=== PATIENT | male | born 1965 | race Caucasian/White ===

== ENCOUNTER 2024-05-12 00:27 | Emergency (ER) | payer OTHER, SELFPAY ==
[2024-05-12 00:33] VITALS: BP 165/78
--- NOTE | 2024-05-12 00:49 | ED.GENMED ---
History of Present Illness
<ANDREI Gardner - Last Filed: 05/12/24 02:32>
General
Chief Complaint: Abdominal Pain
Source: patient
Exam Limitations: none
Time Seen by Provider: 05/12/24 00:39
History of Present Illness
History of Present Illness:
This is a 58 year old male that comes in with c/o abd pain. Stats that he started about 7:30pm tonight with abd pain that is a burning. State that the pain has continued to get worse and is sharp. States that he feels bloated. States that he had
chills at home, nausea. Denies any fever, chest pain, SOB, vomiting, diarrhea, headache, dizziness, urinary burning.
Past History
<ANDREI Gardner - Last Filed: 05/12/24 02:32>
Past History
ED Past Medical History: Asthma, Cancer (GIST(Gastrointestinal stromal tumor)) and Other (GI bleeding, Pelvic mass); Negative HTN, Hypercholesterolemia or NIDDM
ED Past Surgical History: Bowel resection
Social History
Tobacco: Non-smoker
Alcohol: Occasional
Drug: None
Personal:
Living: with family
Employment: Employed
Family History
Family History: Other (Noncontributory)
Review of Systems
<ANDREI Gardner - Last Filed: 05/12/24 02:32>
Review of Systems
All Other Systems: ROS reviewed and negative except as documented in HPI and ROS
Constitutional: Reports chills; Denies fever
EENT: Reports no symptoms
Respiratory: Reports no symptoms; Denies cough or trouble breathing
Cardiac: Reports no symptoms; Denies chest pain
ABD/GI: Reports abdominal pain and nausea; Denies vomiting or diarrhea
: Reports no symptoms; Denies dysuria, frequency or urgency
Musculoskeletal: Reports no symptoms
Skin: Reports no symptoms
Neurological: Reports no symptoms; Denies dizzy or headache
Psychiatric: Reports no symptoms
Phy Exam
<ANDREI Gardner - Last Filed: 05/12/24 02:32>
General Physical Exam
General Presentation: mild distress
General age: appears stated age
General Skin: warm and dry
General Habitus: normal
General Mental: alert
General Hydration: appears well hydrated
ENT Exam
ENT Exam: TM's normal, pharynx normal and neck supple
Eye Exam
Eye Exam: EOMI
Cardiovascular Exam
Cardiovascular Exam: regular rate/rhythm, no edema, no murmur and normal peripheral pulses
Pulmonary Exam
Pulmonary Exam: lungs clear, no respiratory distress, no rales, chest non tender, no crackles, no rhonchi, no wheezing and no cough
Gastrointestinal Exam
Gastrointestinal Exam: normal bowel sounds, no organomegaly, no pulsatile mass and other (Slight distention and slightly firm, Negative for guarding or rebound tenderness)
Musculoskeletal Exam
Musculoskeletal Exam: full ROM and no edema
Skin Exam
Skin Exam: normal color, warm/dry, no rash and no petechia
Psychiatric Exam
Psychiatric Exam: normal mood/affect
Course
<ANDREI Gardner - Last Filed: 05/12/24 02:32>
Orders/Labs/Results
Orders:
Orders
05/12/24 00:48
CT Abd/pel W Iv And Oral Contr Urgent
Comment:
Reason For Exam: ABD PAIN
0.9% Sodium Chloride 1000 ml [Nss] 1,000 ml IV BOLUS
Iohexol [Omnipaque] See Protocol PO NOW STA
Pantoprazole [Protonix IV] 40 mg IV NOW STA
05/12/24 00:49
Ketorolac [Toradol] 30 mg IV NOW STA
Ondansetron Injectable [Zofran] 4 mg IV NOW STA
05/12/24 00:59
CMP [Comprehensive Metabolic Panel] Urgent
Complete Blood Count/With Diff Urgent
Lactate Level [Lactic Acid] Urgent
Lipase Urgent
05/12/24 03:49
Magnesium Citrate [Citroma] 300 ml PO ONCE ONE
Abnormal Lab Results
05/12/24
00:59
RBC 4.03 L 10^6/uL
(4.70-6.10)
Hct 36.7 L %
(39.0-52.0)
MCH 32.5 H pg
(27.0-31.0)
MPV 10.5 H fL
(7.4-10.4)
Absolute Lymphs (auto) 0.7 L 10^3/uL
(1.2-3.4)
Neutrophils % 82.2 H %
(42.2-75.2)
Lymphocytes % 8.7 L %
(20.5-51.1)
Carbon Dioxide 32 H mmol/L
(22-30)
Glucose 118 H mg/dl
(70-99)
05/12/24 00:59
05/12/24 00:59
carbon dioxide slightly elevated, Hyperglycemia. Lactic acid normal at 1.0, Lipase normal at 95
Vital Signs
Initial and Last Documented VS:
Initial Vital Signs
Temp Pulse Resp BP Pulse Ox
98.8 F 75 20 165/78 100
05/12/24 00:33 05/12/24 00:33 05/12/24 00:33 05/12/24 00:33 05/12/24 00:33
Last Documented Vital Signs
Temp Pulse Resp BP Pulse Ox
98.8 F 75 20 134/71 97
05/12/24 00:33 05/12/24 00:33 05/12/24 00:33 05/12/24 02:00 05/12/24 02:47
<Mike Westfall, DO - Last Filed: 05/12/24 03:51>
Orders/Labs/Results
Orders:
Orders
05/12/24 00:48
CT Abd/pel W Iv And Oral Contr Urgent
Comment:
Reason For Exam: ABD PAIN
0.9% Sodium Chloride 1000 ml [Nss] 1,000 ml IV BOLUS
Iohexol [Omnipaque] See Protocol PO NOW STA
Pantoprazole [Protonix IV] 40 mg IV NOW STA
05/12/24 00:49
Ketorolac [Toradol] 30 mg IV NOW STA
Ondansetron Injectable [Zofran] 4 mg IV NOW STA
05/12/24 00:59
CMP [Comprehensive Metabolic Panel] Urgent
Complete Blood Count/With Diff Urgent
Lactate Level [Lactic Acid] Urgent
Lipase Urgent
05/12/24 03:49
Magnesium Citrate [Citroma] 300 ml PO ONCE ONE
Abnormal Lab Results
05/12/24
00:59
RBC 4.03 L 10^6/uL
(4.70-6.10)
Hct 36.7 L %
(39.0-52.0)
MCH 32.5 H pg
(27.0-31.0)
MPV 10.5 H fL
(7.4-10.4)
Absolute Lymphs (auto) 0.7 L 10^3/uL
(1.2-3.4)
Neutrophils % 82.2 H %
(42.2-75.2)
Lymphocytes % 8.7 L %
(20.5-51.1)
Carbon Dioxide 32 H mmol/L
(22-30)
Glucose 118 H mg/dl
(70-99)
05/12/24 00:59
05/12/24 00:59
Vital Signs
Initial and Last Documented VS:
Initial Vital Signs
Temp Pulse Resp BP Pulse Ox
98.8 F 75 20 165/78 100
05/12/24 00:33 05/12/24 00:33 05/12/24 00:33 05/12/24 00:33 05/12/24 00:33
Last Documented Vital Signs
Temp Pulse Resp BP Pulse Ox
98.8 F 75 20 134/71 97
05/12/24 00:33 05/12/24 00:33 05/12/24 00:33 05/12/24 02:00 05/12/24 02:47
<ANDREI Gardner - Last Filed: 05/12/24 02:32>
MDM/Problems Addressed
Differential Diagnosis Includes:
Gastritis, Bowel obstruction.
MDM/Problems Addressed:
This is a 58 year old male that comes in with c/o abd pain. States that his pain started around 7:30pm and has continued to get worse. States that he feels bloated and his abd feels like it is burning.
Will check labs and get CT scan. Will give IV fluids and medicate for pain.
Back into see patient. Explained that his blood work is normal. Lactic acid and lipase are normal. Patient states that he felt better after he was given the Protonix and did not nee the Toradol. Explained that this may be a Gastritis or the starting
of an ulcer. Will place patient on Protonix and Carafate. Await CT scan.
Chronic conditions affecting care: Cancer
Acute Exacerbation and/or Progression of Chronic Illness: Cancer
<ANDREI Gardner - Last Filed: 05/12/24 02:32>
*Pulse Oximetry
Patient hypoxic: no
*EKG
Interpreted by ED Provider?: NA
Rate: EKG- N/A
*Housekeeping Coordinator Interpretation
Rate: Housekeeping Coordinator- N/A
*Critical Care Note
Total Time (30-74mins, 75-104mins- exclusive of procedures): Not Applicable
<Mike Westfall DO - Last Filed: 05/12/24 03:51>
Update Note
Update Note:
CT abdomen and pelvis with IV contrast
IMPRESSION:
Constipation without bowel obstruction or diverticulitis. Status post appendectomy. Stomach distended. Mild small bowel wall thickening suggesting enteritis.
Gallbladder decompressed. No pancreatitis. No obstructing renal stone. Abdominal aorta of normal. Lung bases clear. Distal esophagus decompressed. Bladder wall thickening; correlate with urinalysis.
Finalized at 3:40 AM EST
ED Attending Note
<ANDREI Gardner - Last Filed: 05/12/24 02:32>
-
Portions of this chart may have been created with voice recognition software.� Occasional wrong word or��sound alike� substitutions may have occurred due to the inherent limitations of voice recognition software.
Discharge Plan
Departure
Patient Disposition: Home (Routine Discharge)
Date of Disposition: 05/12/24
Time of Disposition: 03:50
Patient with high blood pressure during this ER visit?: Yes
Condition: Good
Covid-19: Not Applicable
Discharge Problem:
Gastritis, Acute constipation
Instructions: Gastritis (DC), BLOOD PRESSURE, Constipation, Adult (DC)
Prescriptions:
New
pantoprazole [Protonix] 40 mg tablet,delayed release (DR/EC)
40 mg PO DAILY Qty: 20 0RF
sucralfate [Carafate] 1 gram tablet
1 g PO ACHS Qty: 40 0RF
Rx Instructions:
Dissolve in 2tsp water and drink 30min-1hour before meals and at Bedtime
No Action
cholecalciferol (vitamin D3) [Vitamin D3] 25 mcg (1,000 unit) Tablet
25 mcg PO DAILY
acetaminophen 325 mg tablet
650 mg PO Q4HPRN PRN (Reason: mild pain) Qty: 1 0RF
ibuprofen 200 mg tablet
400 - 600 mg PO Q6HPRN PRN (Reason: moderate pain) Qty: 1 0RF
pantoprazole [Protonix] 40 mg tablet,delayed release (DR/EC)
40 mg PO DAILY Qty: 30 0RF
magnesium hydroxide [Milk of Magnesia] 400 mg/5 mL Suspension
30 ml PO DAILY PRN (Reason: constipation)
psyllium husk [Metamucil] 0.4 gram Capsule
1.2 g PO BID
amoxicillin-pot clavulanate [amoxicillin-pot clavulanate] 875-125 mg tablet
1 tab PO Q12 Qty: 20 0RF
oxycodone 5 mg tablet
5 mg PO Q4HPRN PRN (Reason: breakthrough/severe pain) Qty: 20 0RF
sodium chloride 0.9 % (flush) [Normal Saline Flush] Syringe
10 ml IV DAILY 14 Days Qty: 10 0RF
Referrals:
UNKNOWN,NO INTERVIEW [Family Provider] -
Activity Restrictions/Additional Instructions:
As discussed, your blood work is normal. This is most likely a Gastritis. You have had 2 prescriptions sent to your Pharmacy. Please take as directed. Please try and stay away from caffeine as this will irritate the stomach lining. Follow up with
the family doctor for recheck. IF YOU HAVE INCREASED OR CHANGING PAIN OR YOU HAVE ANY OTHER CONCERNS PLEASE RETURN TO THE EMERGENCY ROOM.
Interventions
Interventions:
*Risk Screen - Suicide Last Done: 05/12/24 00:36
*General Assessment Last Done: 05/12/24 00:36
*Neglect/Abuse Screening Last Done: 05/12/24 00:36
ED- Fall Risk Assessment Last Done: 05/12/24 01:37
*ED COVID-19 Vaccine History Last Done: 05/12/24 00:36
ZR-Exsjvm-Nzrzmakjim Assessment Last Done: 05/12/24 01:37
Discharge Date and Time
Print Language: [place]
[2024-05-12] MEDS: OMNIPAQUE 50 ML PO (01:19)
[2024-05-12] MEDS: PROTONIX IV 40 MG IV (01:21)
[2024-05-12 01:25] VITALS: BP 137/79
[2024-05-12] MEDS: NSS 1000 IV (01:35)
[2024-05-12 01:37] VITALS: BMI 24.9
[2024-05-12 01:51] LABS: ALT (SGPT) 17 U/L (0-50); AST (SGOT) 33 U/L (17-59); Albumin 4.5 g/dl (3.5-5.0); Alkaline Phosphatase 58 U/L (38-126); Blood Urea Nitrogen 17 mg/dl (9-20); Calcium 9.6 mg/dl (8.4-10.2); Carbon Dioxide 32 mmol/L (22-30); Chloride 100 mmol/L (98-107); Estimated Creatinine Clearance 65 ml/min; Glucose 118 mg/dl (70-99); Lipase 95 U/L (23-300); Potassium 3.9 mmol/L (3.5-5.1); Sodium 141 mmol/L (135-145); Total Bilirubin 0.7 mg/dl (0.2-1.3); Total Protein 6.6 g/dl (6.3-8.2); eGFR > 60.00
[2024-05-12 01:52] LABS: % Basophils 0.4 % (0-2); % Eosinophils 1.8 % (0-6); % Immature Granulocytes 0.1 % (0-0.5); % Lymphocytes 8.7 % (20.5-51.1); % Monocytes 6.8 % (1.7-9.3); % Neutrophils 82.2 % (42.2-75.2); Absolute Eosinophils 0.1 10^3/uL (0-0.7); Absolute Lymphocytes 0.7 10^3/uL (1.2-3.4); Absolute Monocytes 0.5 10^3/uL (0.1-0.6); Absolute Neutrophils 6.3 10^3/uL (1.4-6.5); Hematocrit 36.7 % (39.0-52.0); Hemoglobin 13.1 g/dL (13.0-18.0); Mean Corp Hgb Conc. 35.7 g/dL (33.0-37.0); Mean Corpuscular Hgb 32.5 pg (27.0-31.0); Mean Corpuscular Volume 91.1 fL (80.0-94.0); Mean Platelet Volume 10.5 fL (7.4-10.4); Nucleated Red Blood Cells % 0 % (-); Platelet Count 199 10^3/uL (130-400); Red Blood Cell Count 4.03 10^6/uL (4.70-6.10); Red Cell Dist. Width 12.2 % (11.5-14.5); White Blood Cell Count 7.7 10^3/uL (4.8-10.8)
[2024-05-12 02:00] VITALS: BP 134/71
[2024-05-12 04:04] VITALS: BP 127/73
[2024-05-12] MEDS: CITROMA 300 ML PO (04:15)
== END 2024-05-12 04:10 | disposition home or self-care (01) ==
LOC: EMR 00:27
PROVIDERS: Clinical Nurse Specialist Family Health; EMERGENCY PHYSICIAN Student in an Organized Health Care Education/Training Program
DX: K29.00 Acute gastritis without bleeding (principal); K59.09 Other constipation; J45.909 Unspecified asthma, uncomplicated; C49.A0 Gastrointestinal stromal tumor, unspecified site; Z90.49 Acquired absence of other specified parts of digestive tract
CPT/HCPCS: 99284; 96374; 96361; 74177; 80053; 83605; 83690; 85025; Q9967